=== PATIENT | male | born 1950 | race Caucasian/White ===

== ENCOUNTER 2025-01-06 20:15 | Observation (INO) | payer OTHER, MEDICARE ==
[2025-01-06 21:17] LABS: ABSOLUTE IMMATURE GRANULOCYTES 0.03 x10^3/uL (0.0-0.031); BASOPHILS # 0.03 x10^3/uL (0.01-0.08); EOSINOPHIL % 0.6 % (0.8-7.0); EOSINOPHILS # 0.07 x10^3/uL (0.04-0.54); HEMATOCRIT 56.6 % (40.1-51.0); HEMOGLOBIN 19.5 g/dL (13.7-17.5); MCHC 34.5 g/dl (32.3-36.5); MEAN CELL VOLUME 89.8 fl (79.0-92.2); MEAN PLT VOLUME 9.7 fl (9.4-12.4); MONOCYTE # 0.37 x10^3/uL (0.30-0.82); MONOCYTE % 2.9 % (5.3-12.2); PLATELET COUNT 273 x10^3/uL (163-337); RDW 12.6 % (12.2-16.6)
[2025-01-06 21:30] LABS: ALBUMIN 4.3 g/dl (3.4-5.0); BILIRUBIN,TOTAL 3.1 mg/dl (0.2-1); CALCIUM 9.7 mg/dl (8.5-10.1); POTASSIUM 4.2 mmol/L (3.5-5.1); TOT PROT 6.7 g/dl (6.4-8.2)
[2025-01-06 22:39] LABS: INR 1.07 (0.83-1.09); PROTHROMBIN TIME (PATIENT) 11.9 SEC (9.7-13.0)
[2025-01-06] MEDS ORDERED: ONDANSETRON 4 MG/2 ML VIAL ONE (23:10)
[2025-01-06] MEDS: ONDANSETRON 4 MG/2 ML VIAL IVPUSH ONE (23:14)
[2025-01-06] MEDS: IBUPROFEN 600 MG TABLET (FP) PO ONE (23:15)
[2025-01-06] MEDS ORDERED: DOCUSATE SODIUM 100 MG CAPSULE (FP) PO PRN (23:49)
[2025-01-06] MEDS ORDERED: ACETAMINOPHEN 325 MG TABLET (FP) PO PRN (23:49)
[2025-01-06 23:56] LABS: HCV DIAGNOSTIC IN-HOUSE W/RFLX NON-REACTIVE (NONREACTIVE)
[2025-01-06 23:57] LABS: HIV INTERPRETATION NEGATIVE (NEGATIVE)
[2025-01-07 00:36] VITALS: BMI 33.5
[2025-01-07] MEDS ORDERED: MECLIZINE HCL 25 MG TABLET (FP) PO PRN (01:38)
[2025-01-07] MEDS ORDERED: TRIMETHOBENZAMIDE HCL 200MG/2ML INJ IM PRN (01:40)
[2025-01-07] MEDS: INSULIN ASPART SLIDING SCALE (NOVOLOG) 1 VIAL SQ SCH (06:07)
[2025-01-07 08:10] LABS: ABSOLUTE IMMATURE GRANULOCYTES 0.02 x10^3/uL (0.0-0.031); BASOPHILS # 0.02 x10^3/uL (0.01-0.08); EOSINOPHIL % 1.3 % (0.8-7.0); EOSINOPHILS # 0.12 x10^3/uL (0.04-0.54); HEMATOCRIT 52.8 % (40.1-51.0); HEMOGLOBIN 18.3 g/dL (13.7-17.5); MCHC 34.7 g/dl (32.3-36.5); MEAN CELL VOLUME 89.8 fl (79.0-92.2); MEAN PLT VOLUME 10.1 fl (9.4-12.4); MONOCYTE # 0.54 x10^3/uL (0.30-0.82); MONOCYTE % 5.6 % (5.3-12.2); PLATELET COUNT 258 x10^3/uL (163-337); RDW 12.7 % (12.2-16.6)
[2025-01-07 08:54] LABS: CALCIUM 9.4 mg/dl (8.5-10.1); CREATININE 0.9 mg/dl (0.6-1.3); POTASSIUM 3.6 mmol/L (3.5-5.1)
[2025-01-07] MEDS: ASPIRIN 81 MG CHEWABLE TABLETS PO SCH (09:21)
[2025-01-07] MEDS: LACTATED RINGERS SOLUTION 1,000 ML/1,000 ML INFUS.BAG IV SCH (09:21)
[2025-01-07] MEDS: amLODIPine BESYLATE 5 MG TABLET (FP) PO SCH (09:21)
[2025-01-07] MEDS: APIXABAN 5 MG TABLET PO SCH (10:52)
[2025-01-07] MEDS ORDERED: METOCLOPRAMIDE HCL INJECTION 10 MG/2 ML VIAL IVPUSH PRN (11:10)
[2025-01-08] MEDS: ACETAMINOPHEN 325 MG TABLET (FP) PO PRN (06:22)
[2025-01-08 06:32] VITALS: RESP 18
[2025-01-08 08:16] LABS: ABSOLUTE IMMATURE GRANULOCYTES 0.01 x10^3/uL (0.0-0.031); BASOPHILS # 0.02 x10^3/uL (0.01-0.08); EOSINOPHIL % 2.7 % (0.8-7.0); EOSINOPHILS # 0.23 x10^3/uL (0.04-0.54); HEMATOCRIT 49.4 % (40.1-51.0); MCHC 34.4 g/dl (32.3-36.5); MEAN CELL VOLUME 90.8 fl (79.0-92.2); MEAN PLT VOLUME 9.7 fl (9.4-12.4); MONOCYTE # 0.46 x10^3/uL (0.30-0.82); MONOCYTE % 5.4 % (5.3-12.2); PLATELET COUNT 199 x10^3/uL (163-337); RDW 12.7 % (12.2-16.6)
[2025-01-08 08:55] LABS: ALBUMIN 3.7 g/dl (3.4-5.0); BILIRUBIN,TOTAL 2.8 mg/dl (0.2-1); CALCIUM 8.9 mg/dl (8.5-10.1); CREATININE 0.8 mg/dl (0.6-1.3); MAGNESIUM 1.9 mg/dL (1.8-2.4); PHOSPHOROUS 3.3 (2.5-4.9); POTASSIUM 3.4 mmol/L (3.5-5.1); TOT PROT 5.8 g/dl (6.4-8.2)
[2025-01-08] MEDS: SACUBITRIL/VALSARTAN 97 MG-103 MG TABLET PO SCH (09:33)
[2025-01-08] MEDS: CYANOCOBALAMIN 1,000 MCG TABLET (FP) PO SCH (09:33)
[2025-01-08] MEDS: CHOLECALCIFEROL (VIT D3) 1,000 UNIT (25 MCG) TABLET PO SCH (09:33)
[2025-01-08] MEDS: ROSUVASTATIN CA 40 MG TABLET PO SCH (09:33)
[2025-01-08] MEDS: EMPAGLIFLOZIN (JARDIANCE) 25 MG TABLET PO SCH (09:34)
[2025-01-08 14:20] VITALS: BP 143/80; PULSE 76; TEMP 97.8
[2025-01-08] MEDS: POTASSIUM CHLORIDE ORAL LIQUID 20 MEQ/15 ML PO ONE (14:36)
== END 2025-01-08 14:53 | disposition home or self-care (01) ==
LOC: FER 20:15 → FM/S 23:50 → UNDOADMOB 23:54 → FM/S 23:54
PROVIDERS: ADMIT Internal Medicine; ATTEND Internal Medicine
PROC: 3E033GC Introduction of Other Therapeutic Substance into Peripheral Vein, Percutaneous Approach (ICD-10-PCS; principal; 2025-01-06)
DX: R42 Dizziness and giddiness (principal); I48.91 Unspecified atrial fibrillation; E11.9 Type 2 diabetes mellitus without complications; I10 Essential (primary) hypertension; E86.0 Dehydration; R82.2 Biliuria; Z79.01 Long term (current) use of anticoagulants; R11.2 Nausea with vomiting, unspecified
CPT/HCPCS: 0241U-QW; 36415; 70450-TC; 71045-TC-FY; 80048; 80053; 80061; 81003; 81015; 82607; 82746; 82962; 83735; 83880; 84100; 84439; 84443; 85025; 85610; 85730; 86803; 87389; 93005; 93306-TC; 96372; 97116-GP; 97162-GP; 99285-25; G0378